=== PATIENT | female | born 1950 | race African-American/Black ===

== ENCOUNTER 2018-03-25 11:16 | Day surgery (SDC) | payer OTHER ==
[2018-03-25 11:40] VITALS: BMI 43.1
[2018-03-25 14:52] VITALS: TEMP 97.7
[2018-03-25 14:57] VITALS: BP 140/78; PULSE 64
--- NOTE | 2018-03-27 18:17 | PATH ---
Surgical Pathology Report Patient Name: VIVIAN TAYLOR [facility]. Rec. #: [id number] /Age/Gender: 1950 (Age: 67) / F Account: [id number] Location: [facility] Taken: 03/25/2018 Received: 03/25/2018 Reported: 03/27/2018 Physicians: Claudia Yee M.D. Specimen(s) Received A: BIOPSY SMALL BOWEL B: RECTOSIGMOID COLON Clinical History History of colon cancer Postoperative diagnosis: hemorrhoids, polyp Final Diagnosis A. SMALL BOWEL, BIOPSY: SMALL BOWEL MUCOSA WITHOUT SIGNIFICANT PATHOLOGIC FINDINGS. B. RECTOSIGMOID COLON, POLYP, BIOPSY: TUBULAR ADENOMA. Electronically Signed Claudia Shepherd M.D. Gross Description A. Received in formalin, labeled "biopsy small bowel" is a chase, irregular portion of soft tissue measuring 0.3 cm. in greatest dimension. The specimen is submitted in toto in one cassette. B. Received in formalin, labeled "biopsy polyp rectosigmoid colon" are 2 chase, irregular portions of soft tissue measuring 0.1 and 0.4 cm. in greatest dimension. The specimens are submitted in toto in one cassette. 03/26/2018 saudi03/26/2018
== END 2018-03-25 13:45 | disposition home or self-care (01) ==
LOC: FASU-ENDO 11:16
PROVIDERS: ATTEND Internal Medicine Gastroenterology
PROC: 0DBN8ZX Excision of Sigmoid Colon, Via Natural or Artificial Opening Endoscopic, Diagnostic (ICD-10-PCS; principal; 2018-03-25 11:45)
DX: Z12.11 Encounter for screening for malignant neoplasm of colon (principal); D12.7 Benign neoplasm of rectosigmoid junction; K64.1 Second degree hemorrhoids
CPT/HCPCS: 88305-TC

== ENCOUNTER 2020-11-22 11:10 | Day surgery (SDC) | payer OTHER ==
[2020-11-17 15:00] VITALS: BMI 47.2
[2020-11-22 12:44] VITALS: TEMP 97.5
[2020-11-22 13:07] VITALS: BP 109/54; PULSE 77
== END 2020-11-22 14:00 | disposition home or self-care (01) ==
LOC: FASU 11:10
PROVIDERS: ATTEND Internal Medicine Gastroenterology
PROC: 0DJD8ZZ Inspection of Lower Intestinal Tract, Via Natural or Artificial Opening Endoscopic (ICD-10-PCS; principal; 2020-11-22 12:00)
DX: Z86.010 Personal history of colon polyps (principal); K64.8 Other hemorrhoids; Z98.0 Intestinal bypass and anastomosis status

== ENCOUNTER 2022-02-16 09:57 | Emergency (ER) | payer OTHER ==
[2022-02-16] MEDS ORDERED: ACETAMINOPHEN 325 MG TABLET (FP) PO ONE (10:46)
[2022-02-16] MEDS ORDERED: ACETAMINOPHEN 325 MG TABLET (FP) ONE (11:17)
[2022-02-16] MEDS ORDERED: METOCLOPRAMIDE HCL 10 MG TABLET (FP) PO ONE ×2 (12:22→13:07)
[2022-02-16] MEDS ORDERED: MAGNESIUM OXIDE 400 MG TABLET (FP) PO ONE (12:22)
[2022-02-16] MEDS ORDERED: KETOROLAC TROMETHAMINE 30 MG/1 ML VIAL IM ONE (12:22)
[2022-02-16 12:42] VITALS: RESP 20; TEMP 97.9; BMI 45.7
[2022-02-16] MEDS ORDERED: MAGNESIUM OXIDE 400 MG TABLET (FP) ONE (13:06)
[2022-02-16] MEDS ORDERED: KETOROLAC TROMETHAMINE 30 MG/1 ML VIAL ONE (13:07)
[2022-02-16 14:46] VITALS: BP 154/64; PULSE 64
== END 2022-02-16 15:13 | disposition home or self-care (01) ==
LOC: JER 09:57
PROC: 3E0233Z Introduction of Anti-inflammatory into Muscle, Percutaneous Approach (ICD-10-PCS; principal; 2022-02-16)
DX: R51.9 Headache, unspecified (principal)
CPT/HCPCS: 70450-TC; 93005; 93010; 99285-25; C9803-CS; U0003; U0005

== ENCOUNTER 2022-03-31 04:19 | Emergency (ER) | payer OTHER ==
[2022-03-31 04:51] VITALS: PULSE 76; TEMP 98.8; BMI 46.4
[2022-03-31] MEDS ORDERED: METOCLOPRAMIDE HCL INJECTION 10 MG/2 ML VIAL IVPUSH ONE (05:11)
[2022-03-31] MEDS ORDERED: ACETAMINOPHEN 1000 MG/100 ML BAG IVPB ONE (05:12)
[2022-03-31] MEDS ORDERED: LACTATED RINGERS SOLUTION 1000 ML INFUS.BAG IV ONE (05:12)
[2022-03-31] MEDS ORDERED: METOCLOPRAMIDE HCL INJECTION 10 MG/2 ML VIAL ONE (05:26)
[2022-03-31] MEDS ORDERED: ACETAMINOPHEN INJECTION 100 ML IVPB ONE (05:26)
[2022-03-31 06:24] LABS: EOS % 1.7 % (0-4.5); HEMATOCRIT 41.3 % (32.4-45.2); HEMOGLOBIN 13.6 GM/dL (10.7-15.3); INR 1.03 (0.83-1.09); LYMPH % 17.5 % (8-40); MCH 28.9 pg (25.7-33.7); MCHC 32.9 g/dl (32.0-36.0); MEAN CELL VOLUME 87.6 fl (80-96); MEAN PLT VOLUME 8.4 fl (7.5-11.1); MONO % 6.4 % (3.8-10.2); NEUT % 73.4 % (42.8-82.8); PLATELET COUNT 228 10^3/uL (134-434); PROTHROMBIN TIME (PATIENT) 11.9 SEC (9.7-13.0); RBC 4.71 M/mm3 (3.60-5.2); RDW 15.8 % (11.6-15.6); WHITE BLOOD COUNT 9.6 K/mm3 (4.0-10.0)
[2022-03-31 06:27] LABS: ACTIVATED PTT 35.3 SECONDS (25.2-36.5)
[2022-03-31 06:39] LABS: CALCIUM 9.3 mg/dL (8.5-10.1)
[2022-03-31 06:40] LABS: ALBUMIN 3.7 g/dl (3.4-5.0)
[2022-03-31 06:43] LABS: CREATININE 1.1 mg/dL (0.55-1.3)
[2022-03-31 06:44] LABS: BILIRUBIN,TOTAL 0.3 mg/dL (0.2-1); TOT PROT 8.1 g/dl (6.4-8.2)
[2022-03-31] MEDS ORDERED: CARVEDILOL 6.25 MG TABLET (FP) PO ONE (07:04)
[2022-03-31] MEDS ORDERED: LOSARTAN 50MG/HCTZ 12.5MG 1 TAB PO ONE (07:05)
[2022-03-31] MEDS ORDERED: CARVEDILOL 3.125 MG TABLET (FP) ONE (07:30)
[2022-03-31 07:47] VITALS: BP 158/76; RESP 16
== END 2022-03-31 09:05 | disposition home or self-care (01) ==
LOC: JER 04:19
PROC: 3E033NZ Introduction of Analgesics, Hypnotics, Sedatives into Peripheral Vein, Percutaneous Approach (ICD-10-PCS; principal; 2022-03-31)
PROC: 3E033GC Introduction of Other Therapeutic Substance into Peripheral Vein, Percutaneous Approach (ICD-10-PCS; 2022-03-31)
DX: R51.9 Headache, unspecified (principal); I10 Essential (primary) hypertension
CPT/HCPCS: 0241U-QW; 36415; 70450-TC; 80053; 84484; 85025; 85610; 85730; 93005; 93010; 99285-25

== ENCOUNTER 2022-09-04 11:05 | Day surgery (SDC) | payer OTHER ==
[2022-09-04 11:41] VITALS: BMI 47.2
[2022-09-04 13:38] VITALS: RESP 18; TEMP 98
[2022-09-04 13:42] VITALS: BP 142/70; PULSE 75
== END 2022-09-04 13:54 | disposition home or self-care (01) ==
LOC: FASU-ENDO 11:05
PROVIDERS: ATTEND Internal Medicine Gastroenterology
PROC: 0DB88ZZ Excision of Small Intestine, Via Natural or Artificial Opening Endoscopic (ICD-10-PCS; 2022-09-04)
PROC: 0DBL8ZX Excision of Transverse Colon, Via Natural or Artificial Opening Endoscopic, Diagnostic (ICD-10-PCS; principal; 2022-09-04 12:37)
DX: Z12.11 Encounter for screening for malignant neoplasm of colon (principal); Z85.038 Personal history of other malignant neoplasm of large intestine; D12.3 Benign neoplasm of transverse colon; K64.1 Second degree hemorrhoids; Z98.0 Intestinal bypass and anastomosis status
CPT/HCPCS: 88305-TC

== ENCOUNTER 2023-11-18 12:34 | Observation (INO) | payer OTHER ==
[2023-11-18] MEDS: SODIUM CHLORIDE 1,000 ML IV SCH (13:00)
[2023-11-18 14:16] LABS: BASO % 1.3 % (0-2.0); EOS % 3.2 % (0-4.5); HEMATOCRIT 36.1 % (32.4-45.2); HEMOGLOBIN 11.8 GM/dL (10.7-15.3); LYMPH % 23.8 % (8-40); MCH 28.9 pg (25.7-33.7); MCHC 32.8 g/dl (32.0-36.0); MEAN PLT VOLUME 8.1 fl (7.5-11.1); MONO % 6.7 % (3.8-10.2); PH,URINE 5.5 (5.0-8.0); PLATELET COUNT 242 10^3/uL (134-434); RDW 16.1 % (11.6-15.6); URINE APPEARANCE CLEAR; URINE BILIRUBIN NEGATIVE (NEGATIVE); URINE COLOR YELLOW; URINE GLUCOSE (UA) NEGATIVE (NEGATIVE); URINE KETONE NEGATIVE (NEGATIVE); URINE LEUK ESTERASE NEGATIVE (NEGATIVE); URINE NITRITE NEGATIVE (NEGATIVE); URINE PROTEIN NEGATIVE (NEGATIVE); URINE UROBILINOGEN 0.2 mg/dL (0.2-1.0); WHITE BLOOD COUNT 6.9 K/mm3 (4.0-10.0)
[2023-11-18 14:24] LABS: INR 1.01 (0.83-1.09); PROTHROMBIN TIME (PATIENT) 11.6 SEC (9.7-13.0)
[2023-11-18 14:27] LABS: ACTIVATED PTT 28.5 SECONDS (25.2-36.5)
[2023-11-18 14:43] LABS: CHLORIDE 110 mmol/L (98-107); SODIUM 142 mmol/L (136-145)
[2023-11-18 14:45] LABS: CALCIUM 9.5 mg/dL (8.5-10.1)
[2023-11-18 14:47] LABS: ALBUMIN 3.4 g/dl (3.4-5.0); ANION GAP 5 mmol/L (4-13); BLOOD UREA NITROGEN 18.8 mg/dL (7-18); CO2 26 mmol/L (21-32); GLUCOSE,RANDOM 107 mg/dL (74-106)
[2023-11-18 14:49] LABS: CHOLESTEROL 146 mg/dL (50-200); CREATININE 1.1 mg/dL (0.55-1.3); SGOT/AST 13 U/L (15-37); SGPT/ALT 12 U/L (13-61)
[2023-11-18 14:50] LABS: BILIRUBIN,TOTAL 0.5 mg/dL (0.2-1); LDL CHOLESTEROL (ONLY SJRH) 60 mg/dL (5-100); TOT PROT 7.3 g/dl (6.4-8.2)
[2023-11-18 14:52] LABS: ALK PHOS 120 U/L (45-117); HDL CHOLESTEROL 72 mg/dL (40-60)
[2023-11-18] MEDS ORDERED: ENOXAPARIN NA (PORCINE) 40 MG/0.4 ML DISP.SYRIN SQ SCH (20:15)
[2023-11-18] MEDS ORDERED: ALBUTEROL SO4 HFA INHALER IH PRN (21:15)
[2023-11-18] MEDS ORDERED: ASPIRIN 325 MG TABLET ONE (22:14)
[2023-11-18] MEDS ORDERED: CARVEDILOL 25 MG TABLET (FP) ONE (22:15)
[2023-11-18] MEDS ORDERED: ENOXAPARIN NA (PORCINE) 40 MG/0.4 ML DISP.SYRIN SQ ONE (22:15)
[2023-11-18] MEDS: ASPIRIN 81 MG CHEWABLE TABLETS PO ONE (22:25)
[2023-11-18] MEDS: ENOXAPARIN NA (PORCINE) 40 MG/0.4 ML DISP.SYRIN SQ SCH (22:26)
[2023-11-18] MEDS: ATORVASTATIN CA 40 MG TABLET (FP) PO ONE (22:26)
[2023-11-18] MEDS: CARVEDILOL 6.25 MG TABLET (FP) PO SCH (22:26)
[2023-11-19 00:25] VITALS: BMI 44.8
[2023-11-19 07:34] LABS: HEMATOCRIT 35.6 % (32.4-45.2); HEMOGLOBIN 11.5 GM/dL (10.7-15.3); MCH 28.3 pg (25.7-33.7); MCHC 32.3 g/dl (32.0-36.0); MEAN CELL VOLUME 87.8 fl (80-96); MEAN PLT VOLUME 8.6 fl (7.5-11.1); PLATELET COUNT 226 10^3/uL (134-434); RBC 4.06 M/mm3 (3.60-5.2); WHITE BLOOD COUNT 6.5 K/mm3 (4.0-10.0)
[2023-11-19 07:43] LABS: POTASSIUM 3.9 mmol/L (3.5-5.1)
[2023-11-19 07:50] LABS: ALBUMIN 3.3 g/dl (3.4-5.0); BLOOD UREA NITROGEN 18.5 mg/dL (7-18); MAGNESIUM 2.3 mg/dL (1.8-2.4)
[2023-11-19 07:53] LABS: BILIRUBIN,TOTAL 0.4 mg/dL (0.2-1); CALCIUM 9.2 mg/dL (8.5-10.1)
[2023-11-19 07:58] LABS: TOT PROT 7.2 g/dl (6.4-8.2)
[2023-11-19] MEDS: FUROSEMIDE 40 MG TABLET (FP) PO SCH (10:29)
[2023-11-19] MEDS: LOSARTAN POTASSIUM 50 MG TABLET PO SCH (10:30)
[2023-11-19] MEDS: CARVEDILOL 25 MG TABLET (FP) PO SCH (10:31)
[2023-11-19] MEDS: amLODIPine BESYLATE 10 MG TABLET (FP) PO SCH (10:31)
[2023-11-19] MEDS: ASPIRIN COATED 81 MG TABLET.EC PO SCH (10:32)
[2023-11-19] MEDS: PANTOPRAZOLE 40 MG TABLET PO SCH (10:32)
[2023-11-19 11:57] VITALS: BP 130/57; RESP 18
[2023-11-19 12:07] VITALS: PULSE 76; TEMP 98.4
[2023-11-19] MEDS ORDERED: ATORVASTATIN CA 80 MG TABLET (FP) PO SCH (22:00)
[2023-11-20] MEDS ORDERED: FUROSEMIDE 20 MG TABLET (FP) PO SCH (10:00)
== END 2023-11-19 15:46 | disposition home or self-care (01) ==
LOC: JER 12:34 → JERBED 20:05 → J4W 23:33
PROVIDERS: ADMIT Internal Medicine; ATTEND Internal Medicine
PROC: 3E023GC Introduction of Other Therapeutic Substance into Muscle, Percutaneous Approach (ICD-10-PCS; principal; 2023-11-18)
PROC: 3E0337Z Introduction of Electrolytic and Water Balance Substance into Peripheral Vein, Percutaneous Approach (ICD-10-PCS; 2023-11-18)
DX: E86.0 Dehydration (principal); T67.5XXA Heat exhaustion, unspecified, initial encounter; T67.01XA Heatstroke and sunstroke, initial encounter; X58.XXXA Exposure to other specified factors, initial encounter; Y93.89 Activity, other specified; Y92.89 Other specified places as the place of occurrence of the external cause; J45.909 Unspecified asthma, uncomplicated; R41.82 Altered mental status, unspecified; G45.9 Transient cerebral ischemic attack, unspecified; I10 Essential (primary) hypertension; E78.00 Pure hypercholesterolemia, unspecified; E11.9 Type 2 diabetes mellitus without complications; R77.8 Other specified abnormalities of plasma proteins; Z85.038 Personal history of other malignant neoplasm of large intestine
CPT/HCPCS: 36415; 70450-TC; 70496-TC; 70498-TC; 80053; 80061; 81003; 82962; 83036; 83735; 84439; 84443; 84484; 85025; 85027; 85610; 85730; 86850; 86900; 86901; 93005; 93010; 93306-TC; 93880-TC; 96360; 96372; 99285-25; G0378; Q9967